=== PATIENT | male | born 1945 | race Caucasian/White ===

== ENCOUNTER 2016-07-18 04:38 | Day surgery (SDC) | payer MEDICARE, OTHER ==
--- NOTE | ~2016-07-18 | OP ---
Record Of Operation [facility] [address] [place]. [address] NAME: PAULA RIZO : 41 STATUS : REG [facility] [place] PAT#: [id number] AGE: 71 ADM/REG DATE : 07/18/16 MR#: [id number] REPORT SERV DATE: 07/18/16 DICTATED BY: PRASHANT GRANT DATE: 07/18/16 REPORT STATUS : Draft TRANSCRIBED BY: MODL DATE: 07/18/16 DATE OF PROCEDURE: 07/18/2016 PREOPERATIVE DIAGNOSIS: Bilateral inguinal hernias. POSTOPERATIVE DIAGNOSIS: Bilateral direct inguinal hernias. OPERATION PERFORMED: Laparoscopic bilateral inguinal hernia repair with Bard 3DMax Mesh. SURGEON: Prashant Grant M.D. METAL BUILDING ASSEMBLER: Rodney Heredia MD. ANESTHESIA: General. ESTIMATED BLOOD LOSS: Less than 10 mL. IV FLUIDS: Adequate. INDICATION FOR PROCEDURE: Mr. Rizo is a 71-year-old gentleman, who has developed symptomatic bilateral inguinal hernias. After full discussion of options including observation and open surgery, he has opted for a laparoscopic bilateral repair. DESCRIPTION OF OPERATION: After appropriate sedation, the patient was prepped and draped in proper sterile fashion. Skin and subcutaneous tissues below the umbilicus were infiltrated with local anesthesia. A similar incision was made below the skin and subcutaneous tissues were incised down to anterior rectus sheath. A transverse incision was made. The anterior rectus sheath and the rectus muscle were elevated. We placed a dissecting balloon into the preperitoneal space and insufflated. This balloon was removed and placed a structural balloon in the preperitoneal space and insufflated. We had good dissection visualizing both bilateral epigastric vessels. We then placed two lower midline 5 mm trocars under direct visualization after obtaining local anesthesia in standard fashion. Visualized on the right, he had a direct inguinal hernia. The contents were removed. The spermatic cord was dissected out. He had no evidence of an indirect inguinal hernia. A piece of Bard 3DMax Mesh was placed on the right inguinal floor and secured to Geoff's ligament and fashioned around the spermatic cord with the slit cut on the inferior aspect. This gave us good wide coverage of the direct defect. It was secured to Geoff's ligament using the Securestrap. Placed another tack superiorly and medially. Another tack was placed superior and laterally. At this region, there was good coverage of internal ring as well as the direct defect. We turned our attention towards the left side. Once again, he had a direct hernia on the left. The contents were dissected out. The spermatic cord was dissected out. There was no evidence of an indirect hernia. Once Geoff's ligament was visualized, a piece of Bard 3DMax Mesh was placed on the left side. A slit was cut on the inferior aspect. It was fashioned around spermatic cord. It was once again secured to Geoff's ligament using the Securestrap. No tack was placed superior and medially. A fourth tack was placed superior and laterally away from the ASIS. This gave us good coverage of Hesselbach triangle, INR Record Of Operation [address] [place]. [address] NAME: PAULA RIZO : 41 STATUS : REG [facility] – [place] PAT#: [id number] AGE: 71 ADM/REG DATE : 07/18/16 MR#: [id number] REPORT SERV DATE: 07/18/16 DICTATED BY: PRASHANT GRANT DATE: 07/18/16 REPORT STATUS : Draft TRANSCRIBED BY: TY DATE: 07/18/16 direct defect as well as a reconstructed internal ring. We instilled 20 mL of Marcaine into the preperitoneal space. The abdomen was then desufflated. The preperitoneal space was insufflated. The fascia was closed using 0 Vicryl suture. The skin was closed using interrupted 3-0 Vicryl suture. Steri-Strips and dressings were then placed. The patient was taken to the recovery room in satisfactory condition. MARTHA/TY Prashant Grant M.D. / [id number] CC: Lynnette Bryant M.D.
[~2016-07-18 04:38] MED LIST: ALTA2.5 PO; ASAB PO; ATRONASAL3 NAS; BL FLAX SEED1000 MG OR; CALTRAT600 PO; CENTRUM PO; CENTRUM TAB1 TAB PO; CO Q-10100 MG PO; COQ10100 MG OR; DYMISTA NASAL S23 GM NAS; FISH-EPA1000 MG PO; FLOMAX4 PO; GLUCCHONDR PO; GLUCOSAMINEPO PO; ISORDIL10 PO; KEPPRA500 PO; LEVOTHYROXIN25 MCG PO; LIPITOR20 PO; LOP25 PO; MAGOX4 PO; MONOKET PO; MULTIPLE VIT PO; MULTIVITAMI1 PO; NIACIN TR1000 MG PO; NIASPAN500 PO; PLAVIX PO; PRISTIQ50 MG PO; PROBIOTIC PO; PROBIOTICS; PROTONIX PO; RESVERATROL 250 MG; SYN.025B PO; VITAMIN D2000 UNIT PO; VITAMIN D31000 UNIT PO; ZANTAC300 MG PO; ZOCOR40 PO; ZOL100 PO; [UNRECOGNIZED DRUG - OTHER]; [UNRECOGNIZED DRUG - OTHER]; [UNRECOGNIZED DRUG - OTHER] PO
== END 2016-07-18 10:34 | disposition home or self-care (01) ==
LOC: SDC 04:38
PROVIDERS: Specialist
PROC: 0YUA4JZ Supplement Bilateral Inguinal Region with Synthetic Substitute, Percutaneous Endoscopic Approach (ICD-10-PCS; principal; 2016-07-18 05:45)
DX: K40.20 Bilateral inguinal hernia, without obstruction or gangrene, not specified as recurrent (principal); I25.10 Atherosclerotic heart disease of native coronary artery without angina pectoris; I25.2 Old myocardial infarction; N40.0 Benign prostatic hyperplasia without lower urinary tract symptoms; E03.9 Hypothyroidism, unspecified; G47.33 Obstructive sleep apnea (adult) (pediatric); K21.9 Gastro-esophageal reflux disease without esophagitis; K44.9 Diaphragmatic hernia without obstruction or gangrene; F32.9 Major depressive disorder, single episode, unspecified; Z90.49 Acquired absence of other specified parts of digestive tract; Z95.1 Presence of aortocoronary bypass graft; Z98.890 Other specified postprocedural states; Z82.49 Family history of ischemic heart disease and other diseases of the circulatory system; Z83.79 Family history of other diseases of the digestive system; Z87.820 Personal history of traumatic brain injury; Z99.89 Dependence on other enabling machines and devices; Z79.82 Long term (current) use of aspirin; Z79.02 Long term (current) use of antithrombotics/antiplatelets; Z79.899 Other long term (current) drug therapy; Z90.89 Acquired absence of other organs; Z98.2 Presence of cerebrospinal fluid drainage device; Z98.41 Cataract extraction status, right eye; Z98.42 Cataract extraction status, left eye; Z96.1 Presence of intraocular lens; Z96.5 Presence of tooth-root and mandibular implants; Z87.440 Personal history of urinary (tract) infections
CPT/HCPCS: 80048; 85025; C1713; C1726; C1727; C1781; J0690; J2250; J2270; J2405; J2710; J3010